=== PATIENT | female | born 1965 | race Two or more races ===

== ENCOUNTER → 2017-12-19 | Outpatient (REF) | payer OTHER ==
[2017-12-19 12:17] LABS: PLATELET COUNT, AUTOMATED 329 K/uL (150-450)
== END ==
PROVIDERS: ATTEND Nurse Practitioner Family
DX: R07.9 Chest pain, unspecified (principal)
CPT/HCPCS: 82040; 82247; 82310; 82374; 82435; 82565; 82947; 84075; 84132; 84155; 84295; 84450; 84460; 84484; 84520; 85025; 85379

== ENCOUNTER 2018-08-19 12:57 | Emergency (ER) | payer MEDICAID, OTHER ==
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
[2018-08-19] MEDS ORDERED: RANI-366 PO (13:24)
[2018-08-19] MEDS ORDERED: LEVO-3 PO (13:24)
[2018-08-19] MEDS ORDERED: PARO-243 PO (13:24)
[2018-08-19] MEDS ORDERED: GABA-549 PO (13:24)
[2018-08-19] MEDS ORDERED: ARI2 PO (13:24)
[2018-08-19] MEDS ORDERED: OMEP40CA48 PO (13:24)
[2018-08-19] MEDS ORDERED: calcitrol PO (13:24)
[2018-08-19] MEDS ORDERED: NS(*) 0.9% 1000 ML BAG 1,000 ML IV ONE (13:29)
[2018-08-19 13:57] LABS: PLATELET COUNT, AUTOMATED 362 K/uL (150-450)
--- NOTE | 2018-08-19 14:29 | RADIOLOGY IMAGING REPORT ---
FACILITY: [facility] [place] PATIENT NAME: Haven Neal : 1965 MR: [id number] V: [id number] EXAM DATE: ORDERING PHYSICIAN: SUKUMAR JOSEPH TECHNOLOGIST: Location: [facility] Patient: Haven Neal : 1965 Visit/Account:[id number] Date of Sevice: 08/19/2018 CT BRAIN NO CONTRAST HISTORY: 53-year-old male with headache. COMPARISON STUDIES: None. TECHNIQUE: Contiguous axial images were obtained from the skull base to the vertex. One of the following dose optimization techniques was utilized in the performance of this exam: Autom ated exposure control; adjustment of the mA and/or kV according to the patient's size; or use of an i terative reconstruction technique. Specific details can be referenced in the facility's radiology C T exam operational policy. FINDINGS: Hemorrhage: There is no intraparenchymal or extra-axial bleed. Ventricles / sulci / fissures: Negative Masses / midline shift: Negative White matter and cullen matter: Abnormal white matter to suggest infarction or small vessel white matte r ischemic change. Extra-axial spaces: Negative Bones/skull base: Negative Visualized mastoid air cells / paranasal sinuses: Normal so far as visualized. Scalp and soft tissues: Negative. Vascular/other findings: There is vascular calcification of the supraclinoid carotid arteries bilater ally. IMPRESSION: Unremarkable CT scan of the brain without findings of a bleed or mass. There are no findings of subar achnoid blood and there is no aneurysm seen. Report Dictated By: Lincoln Garza MD at 08/19/2018 2:23 PM Report E-Signed By: Lincoln Garza MD at 08/19/2018 2:25 PM WSN:[id number]
--- NOTE | 2018-08-19 14:33 | RADIOLOGY IMAGING REPORT ---
[place] [facility] [place] Haven Neal : 1965 MR: [id number] V: [id number] EXAM DATE: ORDERING PHYSICIAN: SUKUMAR JOSEPH TECHNOLOGIST: Location: [facility] Patient: Haven Neal : 1965 Visit/Account:[id number] Date of Sevice: 08/19/2018 CT VERTEBRA CERVICAL (NON CON) EXAMINATION: CT Cervical spine without intravenous contrast HISTORY: 53-year-old male with headache and neck pain. COMPARISON: None. TECHNIQUE: Axial images were obtained from the skull base through the upper thoracic spine without I V contrast administration. Coronal and sagittal reformatted images were obtained from the axial cox monett e data. One of the following dose optimization techniques was utilized in the performance of this exam: Autom ated exposure control; adjustment of the mA and/or kV according to the patient's size; or use of an i terative reconstruction technique. Specific details can be referenced in the facility's radiology C T exam operational policy. FINDINGS: Alignment: The cervical spinal normal lordotic curvature. Vertebral bodies: Is no vertebral body fracture. The dens is unremarkable. Posterior elements: There is no fracture involving the posterior elements. Disc Spaces: Negative. Sinuses and face: No abnormalities so far as visualized. Soft tissues: Negative. Visualized upper chest: There is biapical pleural thickening. IMPRESSION: 1.Unremarkable cervical spine without findings of a fracture. 2. No significant discogenic degenerative change. 3. Biapical pleural-parenchymal thickening. Report Dictated By: Lincoln Garza MD at 08/19/2018 2:25 PM Report E-Signed By: Lincoln Garza MD at 08/19/2018 2:29 PM WSN:[id number]
[2018-08-19] MEDS ORDERED: LIDOCAINE 5% PATCH TP SCH (14:55)
[2018-08-19] MEDS ORDERED: META800T18 PO (14:57)
[2018-08-19 15:00] VITALS: BP 102/72
[2018-08-19] MEDS ORDERED: PATCH REMOVAL 1 EA TOP SCH (21:00)
== END 2018-08-19 15:11 | disposition home or self-care (01) ==
LOC: ER 13:07
DX: G44.209 Tension-type headache, unspecified, not intractable (principal); M54.2 Cervicalgia; G89.29 Other chronic pain
CPT/HCPCS: 70450; 72125; 82375; 85025; 96360; 99284; J7030; 82040; 82247; 82310; 82374; 82435; 82565; 82947; 84075; 84132; 84155; 84295; 84450; 84460; 84520

== ENCOUNTER → 2018-11-16 | Outpatient (CLI) | payer MEDICAID ==
[~2018-11-16] MED LIST: ALB18R INH; ARI2 PO; BENZ200C15 PO; GABA-549 PO; HYDR-627 PO; IPRA3AMP10 IH; LEVO-3 PO; LEVO750T44 PO; LIDO1KIT; META800T18 PO; OMEP40CA48 PO; OXYC20TA99 PO; PARO-243 PO; PRED-1 PO; PRED20TA6 PO; RANI-366 PO; calcitrol PO
--- NOTE | 2018-11-16 15:01 | RADIOLOGY IMAGING REPORT ---
FACILITY: [facility] PATIENT NAME: Haven Neal : 1965 MR: [id number] V: [id number] EXAM DATE: [id number] ORDERING PHYSICIAN: GUILHERME CRUZ TECHNOLOGIST: Location: [facility] Patient: Haven Neal : 1965 Visit/Account:[id number] Date of Sevice: 11/16/2018 Exam type: CHEST PA LAT History: Cough, wheezing, shortness of breath x2 months Comparison: None. Findings: There is patchy airspace consolidation in the upper lobes, right greater than left. There is no evid ence of pleural effusions or overt pulmonary edema. Cardiac silhouette is normal in size. IMPRESSION: 1. There is patchy airspace consolidation in the upper lobes, right greater than left. This could r epresent an infectious/inflammatory process however short-term interval follow-up chest or chest CT r ecommended to assure clearing Report Dictated By: Carisa Moyer MD at 11/16/2018 2:55 PM Report E-Signed By: Carisa Moyer MD at 11/16/2018 2:56 PM WSN:[email or web address]
== END ==
LOC: RAD 13:49
PROVIDERS: ATTEND Nurse Practitioner Primary Care
DX: R05 Cough (principal)
CPT/HCPCS: 71046

== ENCOUNTER → 2018-11-21 | Outpatient (CLI) | payer MEDICAID ==
[2018-11-21 10:34] LABS: PLATELET COUNT, AUTOMATED 408 K/uL (150-450)
--- NOTE | 2018-11-22 09:43 | EKG ---
FACILITY: [facility] - [place] PATIENT NAME: THERESA VERDUGO : [id number] MR: [id number] V: [id number] EXAM DATE: ORDERING PHYSICIAN: GUILHERME CRUZ TECHNOLOGIST: MICHELLE Peralta Test Reason : CHEST PAIN Blood Pressure : / mmHG Vent. Rate : 111 BPM Atrial Rate : 111 BPM P-R Int : 148 ms QRS Dur : 074 ms QT Int : 340 ms P-R-T Axes : 057 025 053 degrees QTc Int : 462 ms Sinus tachycardia Possible left atrial enlargement No previous ECGs available Confirmed by LEXIS FRANCIS ([id number]) on 11/22/2018 4:08:51 PM Referred By: DR. CRUZ Confirmed By:LEXIS FRANCIS
== END ==
LOC: LAB 10:18
PROVIDERS: ATTEND Nurse Practitioner Primary Care
DX: R00.0 Tachycardia, unspecified (principal)
CPT/HCPCS: 36415; 82040; 82247; 82310; 82374; 82435; 82565; 82947; 84075; 84132; 84155; 84295; 84450; 84460; 84484; 84520; 85025; 85379

== ENCOUNTER → 2018-12-19 | Outpatient (CLI) | payer MEDICAID ==
[~2018-12-19] MED LIST changes: +GUAI120L3 PO; +LIDO1KIT TOP; +ROSU10TA PO
== END ==
LOC: LAB 10:20
PROVIDERS: ATTEND Emergency Medicine
DX: M54.2 Cervicalgia (principal); N18.9 Chronic kidney disease, unspecified; E66.9 Obesity, unspecified
CPT/HCPCS: 36415; 82306; 82465; 82607; 83718; 84443; 84478

== ENCOUNTER → 2019-01-08 | Outpatient (CLI) | payer MEDICAID ==
[~2019-01-08] MED LIST changes: +CALC0.5C5 PO; +GABA-533 PO; +LEV125 PO; +LIDO30CR3 TP; +PARO40TA88 PO; -RANI-366 PO; +RANI-54 PO
--- NOTE | 2019-01-08 14:24 | RADIOLOGY IMAGING REPORT ---
FACILITY: [facility] PATIENT NAME: Haven Neal : 1965 MR: [id number] V: [id number] EXAM DATE: ORDERING PHYSICIAN: YOMI CHEUNG TECHNOLOGIST: Location: [facility] Patient: Haven Neal : 1965 Visit/Account:[id number] Date of Sevice: 01/08/2019 CHEST PA LAT HISTORY: Cough COMPARISON: None available FINDINGS: Frontal and lateral views chest obtained. Lines/tubes: None. Lungs/pleura: Moderate biapical likely pleural parenchymal scarring. Diffuse prominence of the pulmo nary interstitium without jw airspace consolidation. No effusion or pneumothorax. No evidence of overt congestive failure. Cardiomediastinum and radha: Within normal limits. Bones/soft tissues: Unremarkable. Additional findings: None. IMPRESSION: Apical pleural parenchymal pulmonary scarring and diffuse pulmonary interstitial thickening, not sign ificantly changed from prior exam and likely chronic. No focal airspace consolidation or other evide nce of an acute intrathoracic process. As clinically warranted, consider further evaluation with CT chest without intravenous contrast and utilizing high-resolution lung protocol. Report Dictated By: Nilo Rae MD at 01/08/2019 2:11 PM Report E-Signed By: Nilo Rae MD at 01/08/2019 2:13 PM WSN:[email or web address]
== END ==
LOC: LAB 10:30
PROVIDERS: ATTEND Emergency Medicine
DX: R91.8 Other nonspecific abnormal finding of lung field (principal); R05 Cough
CPT/HCPCS: 71046; 81001

== ENCOUNTER → 2019-01-25 | Outpatient (CLI) | payer BC, MEDICAID ==
--- NOTE | 2019-01-25 15:33 | RADIOLOGY IMAGING REPORT ---
FACILITY: [facility] PATIENT NAME: Haven Neal : 1965 MR: [id number] V: [id number] EXAM DATE: ORDERING PHYSICIAN: YOMI CHEUNG TECHNOLOGIST: Location: [facility] [place] Patient: Haven Neal : 1965 Visit/Account:[id number] Date of Sevice: 01/25/2019 CT CHEST W/O CONTRAST History: Evaluate for interstitial lung disease TECHNIQUE: Contiguous axial images were performed through the chest to the level of the adrenal gla nds. Thereafter, non-contiguous 1 mm axial imaging performed. No IV contrast was administered. Inspir atory, expiratory, and prone imaging performed. Coronal and sagittal reformatting was also performed. One of the following dose optimization techniques was utilized in the performance of this exam: A utomated exposure control; adjustment of the mA and/or kV according to the patient's size; or use of an iterative reconstruction technique. Specific details can be referenced in the facility's radiolo gy CT exam operational policy. No IV contrast was administered. COMPARISON STUDIES: none. Lungs / Pleura: There is mild biapical subpleural consolidation and several small subpleural blebs measuring up to 1 cm diameter seen at the lung apices. The lung parenchyma is otherwise well-aerated and normal. There is no evidence of interstitial thickening or subpleural secondary lobular thickenin g. No pleural effusions. There is no evidence of air trapping on expiratory imaging. Mediastinum/nodes: negative. Heart and vessels: negative. Musculoskeletal / Body wall: negative. Upper abdomen: Visualized abdominal viscera negative. IMPRESSION: There are small areas of subpleural consolidation of the lung apices accompanied by several small ble bs. Apical thickening and be seen in older individuals but somewhat unusual at this age. Mild pneumoc oniosis a possibility and correlate with any exposure to dust, silica, or industrial exposure. There is no evidence of interstitial pulmonary fibrosis. Report Dictated By: David Purdy MD at 01/25/2019 3:15 PM Report E-Signed By: David Purdy MD at 01/25/2019 3:26 PM WSN:[id number]
== END ==
LOC: CT 00:34
PROVIDERS: ATTEND Emergency Medicine
DX: J84.9 Interstitial pulmonary disease, unspecified (principal)
CPT/HCPCS: 71250

== ENCOUNTER → 2019-03-08 | Outpatient (CLI) | payer BC ==
[~2019-03-08] MED LIST changes: +VARE1TAB3 PO
== END ==
LOC: US 04:03
PROVIDERS: ATTEND Emergency Medicine
DX: R94.2 Abnormal results of pulmonary function studies (principal)
CPT/HCPCS: 93306

== ENCOUNTER → 2019-03-11 | Outpatient (CLI) | payer BC ==
[~2019-03-11] MED LIST changes: +BARIUM SULFATE 148 GM POWDER ONE; +BARIUM SULFATE 240 ML ORAL SUS (NECTAR) ONE
--- NOTE | 2019-03-11 17:06 | RADIOLOGY IMAGING REPORT ---
FACILITY: [facility] [place] PATIENT NAME: Haven Neal : 1965 MR: [id number] V: [id number] EXAM DATE: ORDERING PHYSICIAN: FOSTER MULLINS TECHNOLOGIST: Location: [facility] [place] Patient: Haven Neal : 1965 Visit/Account:[id number] Date of Sevice: 03/11/2019 Exam type: ESOPH VIDEO SWALLOWING History: Dysphasia, GERD Comparison: None. Findings: The modified barium swallow was performed by the speech pathologist. Fluoroscopic assistance was pro vided. Patient received various liquids and food substances and a barium tablet. No dysphasia was n oted during the examination Please see the speech pathologist report for complete details. The dose area product was 224.69 micro-Meyer per meter squared IMPRESSION: 1. As above Report Dictated By: Carisa Moyer MD at 03/11/2019 4:56 PM Report E-Signed By: Carisa Moyer MD at 03/11/2019 4:57 PM WSN:[email or web address]
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
== END ==
LOC: RAD 00:42
PROVIDERS: ATTEND Surgery
DX: R11.10 Vomiting, unspecified (principal); R13.10 Dysphagia, unspecified; K21.9 Gastro-esophageal reflux disease without esophagitis
CPT/HCPCS: 74230

== ENCOUNTER 2019-03-13 01:24 | Day surgery (SDC) | payer BC, MEDICAID ==
[~2019-03-13] VITALS: Ht 160 cm; Wt 82.6 kg
[~2019-03-13 01:24] MED LIST changes: -BARIUM SULFATE 148 GM POWDER ONE; -BARIUM SULFATE 240 ML ORAL SUS (NECTAR) ONE
[2019-03-13] MEDS ORDERED: PROPOFOL EMUL(*) 10MG/ML 20 ML 40 ML ONE (07:25)
[2019-03-13] MEDS ORDERED: LIDOCAINE MPF 1% 5 ML VIAL ONE (07:25)
[2019-03-13] MEDS ORDERED: NORMOSOL R SOLN(*) 1000 ML BAG 1,000 ML IV PRN (08:15)
[2019-03-13] MEDS ORDERED: LIDOCAINE/SOD BICARB 8.4% SYR ID ONE (08:15)
[2019-03-13 08:29] VITALS: BP 128/87
[2019-03-13] MEDS ORDERED: GLYCOPYRROLATE 0.2MG/ML 1 ML INJ IVP ONE (08:40)
[2019-03-13 09:04] VITALS: BP 124/80
[2019-03-13 09:15] VITALS: BP 109/86
--- NOTE | 2019-03-13 09:15 | Short(Outpt) Discharge Summary ---
Discharge Summary Reason for Hosp/Final Diag: (1) GERD (gastroesophageal reflux disease) Status: Chronic Hospital Course & Plan: EGD with esophageal dilation completed without problems. (2) Regurgitation of food Status: Chronic (3) Dysphagia Status: Chronic Departure Discharge to: Home, Self Care Discharge Instructions Home Meds Active Scripts Varenicline Tartrate (CHANTIX) 1 Each Tab.ds.pk, 1 EACH PO QDAY, #53 TAB 0 Refills Prov:YOMI CHEUNG MD 02/27/19 Rosuvastatin Calcium (CRESTOR) 10 Mg Tab, 10 MG PO QDAY, #30 TAB 3 Refills Prov:YOMI CHEUNG MD 02/08/19 Aripiprazole (ABILIFY) 2 Mg Tablet, 2 MG PO QDAY, #90 TAB 3 Refills Prov:YOMI CHEUNG MD 01/30/19 Lidocaine/Prilocaine (LIDOCAINE-PRILOCAINE CREAM) 30 Gm Cream..g., 2 IRMA TP DAILY, #1 TUBE 4 Refills Prov:YOMI CHEUNG MD 01/10/19 Levothyroxine Sodium (LEVOTHYROXINE SODIUM) 0.125 Mg Tab, 0.125 MG PO QDAY, #90 TAB 3 Refills Prov:YOMI CHEUNG MD 12/27/18 Paroxetine Hcl (PAROXETINE HCL) 40 Mg Tablet, 40 MG PO QDAY, #90 TAB 3 Refills Prov:YOMI CHEUNG MD 12/25/18 Calcitriol (CALCITRIOL) 0.5 Mcg Capsule, 0.5 MCG PO QID, #360 CAPSULE 3 Refills Prov:YOMI CHEUNG MD 12/25/18 Gabapentin (GABAPENTIN) 600 Mg Tablet, 600 MG PO QID, #360 TAB 3 Refills Prov:YOMI CHEUNG MD 12/25/18 Ipratropium/Albuterol Sulfate (IPRAT-ALBUT 0.5-3(2.5) MG/3 ML) 3 Ml Ampul.neb, 3 ML IH Q4-6H PRN for WHEEZING, #1 BOX 0 Refills Prov:GUILHERME CRUZ DNP, BILL HIKER-BC 11/23/18 Reported Medications Albuterol Sulfate (VENTOLIN HFA) Unknown Strength Inh, INH 3-4XD, INH 11/16/18 Ranitidine Hcl (ZANTAC) 150 Mg Tablet, 150 MG PO QDAY, TAB 08/19/18 Discontinued Reported Medications Oxycodone Hcl (OXYCONTIN) 20 Mg Tab.er.12h, 20 MG PO BID PRN for pain, TAB 11/16/18 Discontinued Scripts Metaxalone (SKELAXIN) 800 Mg Tablet, 800 MG PO TID, #12 TAB 0 Refills Prov:SUKUMAR JOSEPH BILL HIKER-BC 08/19/18 Diet: Regular Activity: As Tolerated Special Instructions: Your upper endoscopy was completed without problems. I didn't find anything abnormal in your upper GI tract. I dilated your esophagus as sometimes this can lead to improvement in your symptoms. My office will call you back in the next day or two to schedule a follow up appointment for me to see how you're doing and if we need to do any further work up or treatment measures. Problem Qualifiers (1) GERD (gastroesophageal reflux disease): Esophagitis presence: without esophagitis Qualified Codes: K21.9 - Gastro-esophageal reflux disease without esophagitis (2) Dysphagia: Dysphagia type: esophageal phase Qualified Codes: R13.10 - Dysphagia, unspecified FOSTER MULLINS MD Mar 13, 2019 09:15
--- NOTE | 2019-03-13 09:19 | NUR ---
0904 SBAR REPORT WAS RECEIVED FROM ESTRELLA AND DR. RAE. PATIENT IS BREATHING SPONTANEOUSLY AT A MODERATE RATE AND DEPTH. LUNGS ARE CLEAR. SHE ARRIVED ON 10 LITERS OXYMASK THAT WAS MOVED TO 2 LITERS ON ARRIVAL. BOWEL SOUNDS ARE ACTIVE. UNABLE TO ASSESS PAIN OR NAUSEA. PATIENT IS SLEEPING AT THIS TIME AND IS IN A L. LATERAL POSITION. 0915 PATIENT CONTINUES TO SLEEP
[2019-03-13 09:30] VITALS: BP 110/76
--- NOTE | 2019-03-13 09:33 | NUR ---
9051 PATIENT WOKE UP. STATES SHE HAS A SLIGHT SORE THROAT BUT IS FEELING WELL
--- NOTE | 2019-03-13 09:34 | NUR ---
0934 PATIENT WAS MOVED TO ROOM AIR
[2019-03-13 09:43] VITALS: BP 97/74
[2019-03-13 09:45] VITALS: BP 109/81
--- NOTE | 2019-03-13 09:50 | NUR ---
0943 BEGAN DOING ORTHOSTATICS WITH PATIENT. SHE DENIES ANY DIZZINESS OR LIGHTHEADEDNESS 0945 PATIENT BEGAN STANDING. SHE WAS STABLE ON HER FEET 0946 PATIENT BEGAN GETTING DRESSED 0948 IV WAS DC'D WITH CATH INTACT 0950 PATIENT WAS TAKEN OUT AND WAS AMBULATORY ON DISCHARGE. LUNGS WERE CLEAR. BOWEL SOUNDS WERE HYPERACTIVE. SHE STATES HER THROAT IRRITATION IS 5/10. SHE WAS ACCOMPANIED BY HER DAUGHTER. SEE DISCHARGE ASSESSMENT.
== END 2019-03-13 09:50 | disposition home or self-care (01) ==
LOC: OR 01:24
PROVIDERS: ATTEND Surgery
DX: R13.10 Dysphagia, unspecified (principal); R11.10 Vomiting, unspecified; K21.9 Gastro-esophageal reflux disease without esophagitis
CPT/HCPCS: 43248; J2001; J2704; J3490; C1769